=== PATIENT | female | born 1945 | race Caucasian/White ===

== ENCOUNTER 2017-06-27 10:09 | Outpatient (CLI) | payer MEDICARE, BC ==
[2017-06-27 10:09] VITALS: BP 132/74
[~2017-06-27 10:09] MED LIST: HYDR-569 PO; NICO-631 TD
== END 2017-06-27 11:15 | disposition home or self-care (01) ==
LOC: ORTHO 10:09
PROVIDERS: ATTEND Nurse Practitioner Family
DX: S72.001D Fracture of unspecified part of neck of right femur, subsequent encounter for closed fracture with routine healing (principal); M81.0 Age-related osteoporosis without current pathological fracture; Z79.82 Long term (current) use of aspirin; X58.XXXD Exposure to other specified factors, subsequent encounter
CPT/HCPCS: 73502; 99214